=== PATIENT | male | born 1985 | race African-American/Black ===

== ENCOUNTER 2018-10-23 18:43 | Emergency (ER) | payer BC, OTHER ==
[~2018-10-23] VITALS: Ht 177.8 cm; Wt 73.0 kg
[~2018-10-23 18:43] MED LIST: ACETAMINOPHEN-1 EAC1 PO; IBUPROFEN 600600 M1 PO; IBUPROFEN 800800 M1 PO; NAPROSYN500 MG PO; NORCO 5-325 TA1 EACH PO; OMEPRAZOLE40 MG PO; POTASSIUM20 PO; PREDNISONE 20 M20 M1 PO
[2018-10-23] MEDS ORDERED: NAPROSYN500 MG PO (20:39)
[2018-10-23 20:54] VITALS: BP 121/78
== END 2018-10-23 21:19 | disposition home or self-care (01) ==
LOC: ER 18:43
DX: M25.852 Other specified joint disorders, left hip (principal); R10.30 Lower abdominal pain, unspecified; K21.9 Gastro-esophageal reflux disease without esophagitis; Z79.899 Other long term (current) drug therapy

== ENCOUNTER 2019-10-10 01:04 | Emergency (ER) | payer BC, OTHER ==
[~2019-10-10] VITALS: Ht 177.8 cm; Wt 75.3 kg
[2019-10-10 01:05] VITALS: BP 127/83
[2019-10-10] MEDS ORDERED: VITAMIN D310 MC4 PO (01:10)
[2019-10-10] MEDS ORDERED: FOLIC ACID1 MG PO (01:10)
[2019-10-10] MEDS ORDERED: OXBRYTA PO (01:10)
== END 2019-10-10 02:12 | disposition home or self-care (01) ==
LOC: ER 01:04
DX: S01.01XA Laceration without foreign body of scalp, initial encounter (principal); K21.9 Gastro-esophageal reflux disease without esophagitis; Z79.899 Other long term (current) drug therapy; W20.8XXA Other cause of strike by thrown, projected or falling object, initial encounter; Y93.89 Activity, other specified; Y92.89 Other specified places as the place of occurrence of the external cause; Y99.8 Other external cause status